=== PATIENT | male | born 1940 | race Caucasian/White ===

== ENCOUNTER 2017-02-25 19:30 | Inpatient (IN) | payer BC, MEDICARE ==
[~2017-02-25] VITALS: Ht 177.8 cm; Wt 59.9 kg
--- NOTE | 2017-02-25 20:00 | NUR ---
PRE - ADMISSION NOTE : The patient is a 76-year-old female who presents to [facility] for evaluation of medically supervised withdrawal from alcohol, opiates on 02/25/2017. His Primary Care Provider is , [place], [place]. Pt. is Full Code per Advanced Directive (at his home at the [facility]), NKA, on Regular Diet. He reports the cause of his drinking habit and opiates use was due to increased negative emotions related to his left right shoulder fracture and pain. He states the cause of his ongoing and frequent use alcohol have been due to difficulty coping with chronic pain, cravings, and treatment of negative withdrawal symptoms. He reports consuming 750 mL of white wine on a daily basis since 2015, last used on the day of present admission. He also takes Hydrocodon 10/325mg BID QD PO last two weeks. His longest sober period was 3 months in the year 2013. He states his alcohol use has negatively impacted his life by impairing close relationships with family and negatively impacting his physical and mental health. The patient reports NO history of withdrawal-induced seizures, NO history of SI/HI, NO history of audio or video hallucinations. At the time of admission, the patient was mild intoxicated without evidence of withdrawal, OL=797/77, HR=65, Arrythmia, RR=16/min, unlabored and even, Temp=98.2, Spo2=95% with room air. Speech is clear and audible. Pt. will be admitted to the unit.
--- NOTE | 2017-02-25 22:00 | NUR ---
ADMISSION NOTE : The patient is a 76-year-old female who presents to [facility] for evaluation of medically supervised withdrawal from alcohol, opiates on 02/25/2017. His Primary Care Provider is , [place], [place]. Pt. is Full Code per Advanced Directive (at his home at the [facility]), NKA, on Regular Diet. He reports the cause of his drinking habit and opiates use was due to increased negative emotions related to his left right shoulder fracture and pain. He states the cause of his ongoing and frequent use alcohol have been due to difficulty coping with chronic pain, cravings, and treatment of negative withdrawal symptoms. He reports consuming 750 mL of white wine on a daily basis since 2015, last used on the day of present admission. He also takes Hydrocodon 10/325 BID QD PO last two weeks. His longest sober period was 3 months in the year 2013. He states his alcohol use has negatively impacted his life by impairing close relationships with family and negatively impacting his physical and mental health. He reports uncertainty about the barriers he will have to overcome to achieve full, long-term sobriety. The patient reports NO history of withdrawal-induced seizures, NO history of SI/HI, NO history of audio or video hallucinations. At the time of admission, the patient was mild intoxicated without evidence of withdrawal, Upon assessment, pt is alert and oriented x4 , the patient reported the following symptoms of withdrawal: anxiety, restlessness, generalized pain, arthralgias, myalgias, difficulty concentrating, anhedonia. PC=381/77, HR=65, Arrythmia, RR=16/min, unlabored and even, Temp=98.2, Spo2=95% with room air. Pt is cooperative. Last BM on 02/24/17. Speech is clear and audible. Skin assessment : multiple small bruises all over the body, fungus bilaterally , photo assessment done, see picture in the chart. . Pt was oriented to room and unit. Pt. was able to provide UDS sample , see results in the PC chart. Safety measures in place : bed on lowest position with side rails x2 up for safety, call light within reach. Will continue to monitor closely and offer help. SUBSTANCE ABUSE HISTORY : White wine 750ml QD PO since 2015, last use on 02/25/2017, pt. uses alcohol since 2010 Hydrocodone 10/325mg QD BID PO last two weeks, last use on 02/25/2017 [place] HISTORY : This is his first Detox. PAST MEDICAL HISTORY : Right shoulder fracture in 11/2016, chronic back pain because of falls. Pt. cant be focused on my questions because of intoxication. FAMILY HISTORY : Parents , the brother diagnosed with Hypothyroidizm, father suffered from Depression. Pt. has two step children.
[2017-02-25 22:11] LABS: *AMPHETAMINE, URINE NEGATIVE (NEGATIVE); *BARBITURATE, URINE NEGATIVE (NEGATIVE); *CANNABINOID, URINE NEGATIVE (NEGATIVE); *COCCAINE, URINE NEGATIVE (NEGATIVE); *OPIATE, URINE POSITIVE (NEGATIVE); *PHENCYCLIDINE SCREEN,URINE NEGATIVE (NEGATIVE)
[2017-02-25 23:40] LABS: BASOPHILS # (AUTO) 0.3 K/uL (0.0-8.0); BASOPHILS % (AUTO) 3.2 % (0.0-2.0); EOSINOPHILS # (AUTO) 0.1 K/uL (0.0-0.7); EOSINOPHILS % (AUTO) 0.6 % (0.0-7.0); HEMATOCRIT 43.5 % (40-50); HEMOGLOBIN 14.6 G/DL (14.0-18.0); LYMPHOCYTES # (AUTO) 0.6 K/UL (0.8-4.8); MEAN CORPUSCULAR HEMOGLOBIN 35.1 UUG (27.0-31.0); MEAN CORPUSCULAR HGB CONC 34 g/dL (32.0-37.0); MEAN CORPUSCULAR VOLUME 104.6 FL (82.0-92.0); MONOCYTES # (AUTO) 0.9 K/UL (0.1-1.30); MONOCYTES % (AUTO) 10.1 % (0.0-11.0); NEUTROPHILS # (AUTO) 6.5 K/UL (1.8-8.9); NEUTROPHILS % (AUTO) 79.1 % (38.5-71.5); PLATELET COUNT (AUTO) 263 K/UL (150-450); RED BLOOD CELL COUNT(AUTO) 4.16 MIL/UL (4.7-6.1); WHITE BLOOD COUNT (AUTO) 8.4 K/UL (4.0-11.2)
[2017-02-25 23:51] LABS: ETHANOL 18 MG/DL (0-0)
[2017-02-25 23:54] LABS: ALANINE AMINOTRANSFERASE 32 U/L (16-63); ALKALINE PHOSPHATASE 155 U/L (50-136); AMYLASE 26 U/L (25-115); ASPARTATE AMINOTRANSFERASE 33 U/L (15-37); BILIRUBIN,TOTAL 0.6 mg/dL (0.2-1.0); CARBON DIOXIDE 31 mmol/L (21-32); CHLORIDE 101 mmol/L (98-107); CREATININE 0.7 mg/dL (0.6-1.3); GLUCOSE 90 mg/dL (74-106); MAGNESIUM 1.9 mg/dL (1.8-2.4); POTASSIUM 3.8 mmol/L (3.5-5.1); TOTAL PROTEIN, SERUM 6.7 g/dL (6.4-8.2); UREA NITROGEN, BLOOD 6 mg/dL (7-18)
[2017-02-26] VITALS: BP 106/77
[2017-02-26] MEDS ORDERED: HYDR-3980 PO (00:25)
[2017-02-26] MEDS ORDERED: FINA5TAB11 PO (00:25)
[2017-02-26] MEDS ORDERED: TAMS0.4C34 PO (00:25)
[2017-02-26 04:00] VITALS: BP 101/60
--- NOTE | 2017-02-26 06:38 | NUR ---
END OF SHIFT : The patient is a 76-year-old female who presents to [facility] for evaluation of medically supervised withdrawal from alcohol, opiates on 02/25/2017. Pt. is Full Code per Advanced Directive (at his home at the [facility]), NKA, on Regular Diet. He reports consuming 750 mL of white wine on a daily basis since 2015, last used on the day of present admission. He also takes Hydrocodon 10/325 BID QD PO last two weeks. His longest sober period was 3 months in the year 2013. The patient reports NO history of withdrawal-induced seizures, NO history of SI/HI, NO history of audio or video hallucinations. Pt remains compliant with the treatment plan. No PRNs were given during my shift. Pt. refused his evening medications, wanted to sleep. V/S remain WNL. RR=16, even and unlabored, lungs clear upon auscultation, abdomen soft and non- distended. Pt denies nausea, vomiting and diarrhea. LAST CIWA=3 ,COWS= 3 at 0400 , INTAKE= 250 ml, voided x3 , slept 6 hours. Safety measures in place : bed on lowest position with side rails x2 up for safety, call light within reach. Will continue to monitor closely and offer help.
--- NOTE | 2017-02-26 07:45 | NUR ---
START OF SHIFT Rcvd endorsement from ongoing nurse, client is in room, he is a/o to name, place, situation. He presents with depressed mood, flat affect, skin moist to touch, flushed face, and fine tremors. He reports chronic low back pain 7/10, no appetite, restless legs, sweats, and fatigue. Left big toe with dry blood around nail, client stated "I must have hurt my big toe, when I was drinking." Dry scab noted on L top auricle, nose bridge, client denies any discomfort. Client is admitted for withdrawal from alcohol. He is on modified 5 day Ativan taper , first dose today @ 0900. Last CIWA 3/COWS 3 @ 0400. Client slept 6 hours. Client reports NKA, full code, regular diet. Client reports denies hx of withdrawal-induced seizure. Client is on seizure and fall precautions. 1:1 sitter for safety monitoring. Side rails x 2 up/padded, bed in lowest/lock position. Call light within reach.
[2017-02-26 08:10] VITALS: BP 102/63
--- NOTE | 2017-02-26 08:19 | NUR ---
PRN Tylenol 650mg PO for chronic low back pain 12/08, Will continue to monitor. Call light within reach.
--- NOTE | 2017-02-26 08:20 | NUR ---
TB test administered ID to L forearm. Vitamin B1 Inj IM administered to L deltoid, client tolerated well.
--- NOTE | 2017-02-26 09:19 | NUR ---
Reassessment PRN Tylenol 650mg effective, client is in bed, sounds asleep, RR 16. Will continue to monitor. Call light within reach.
--- NOTE | 2017-02-26 11:00 | NUR ---
Charge nurse notified of irregular pulse, client is asymptomatic, he denies any chest pain. Will continue to monitor.
[2017-02-26 12:50] VITALS: BP 99/63
--- NOTE | 2017-02-26 14:00 | NUR ---
Dr. Chan ordered EKG for irregular pulse; eval for atrial fibrillation, client is asymptomatic, will continue to monitor.
[2017-02-26 16:55] VITALS: BP 106/61
--- NOTE | 2017-02-26 18:17 | NUR ---
Dr. Chan notified sinus rhythm with blocked premature atrial complexes with occasional premature ventricular complexes. Left axis deviation, Prolonged QT, Abnormal ECG. Client is in bed, a/o x 4, he denies any chest pain. Will continue to monitor.
--- NOTE | 2017-02-26 18:58 | NUR ---
END OF SHIFT Endorsed client to incoming nurse, client is a 76 y/o male, admitted to [facility] for withdrawal from alcohol. He is on modified 5 day Ativan taper, tolerating well. Last CIWA 5 @ 1600. VTE 3, client wearing intermittent Pneumatic CD, tolerating well. PRN Tylenol for chronic low back pain 12/08, noted effective. Dr. Chan notified sinus rhythm with blocked premature atrial complexes with occasional premature ventricular complexes, Left axis deviation, Prolonged QT, Abnormal ECG, NNO at this time. Client is in bed, sound asleep, easy to arouse, RR 16, even, non-labored.. Client continues to present with depressed mood, flat affect, clammy skin, fine tremors. Client was not compliant with group therapy d/t withdrawal symptoms. Adequate PO intake 800mL, void x 2. Client reports NKA, full code, regular diet. Client reports denies hx of withdrawal-induced seizure. Client is on seizure and fall precautions. 1:1 sitter for safety monitoring, d/t unsteady gait. Side rails x 2 up/padded, bed in lowest/lock position. Call light within reach.
--- NOTE | 2017-02-26 19:15 | NUR ---
START OF SHIFT NOTE : Pt. is a 76 y/o male, admitted to [facility] for withdrawal from alcohol. He is on modified 5 day Ativan taper, tolerating well. Client reports NKA, full code, regular diet. Client reports denies hx of withdrawal-induced seizure Last CIWA=10,COWS=5 at 1600. VTE 3, client wearing intermittent Pneumatic CD, tolerating well.. Client is in bed, sound asleep, easy to arouse, RR 16, even, non-labored. Client continues to present with depressed mood, flat affect, clammy skin, fine tremors. Client was not compliant with group therapy d/t withdrawal symptoms. Client is on seizure and fall precautions. 1:1 sitter for safety monitoring, d/t unsteady gait. Safety measures in place : bed on lowest position with side rails x2 up for safety, call light within reach. Will continue to monitor closely and offer help.
[2017-02-26 20:00] VITALS: BP 108/60
[2017-02-27 04:00] VITALS: BP 95/68
--- NOTE | 2017-02-27 06:42 | NUR ---
END OF SHIFT NOTE : Pt. is a 76 y/o male, admitted to [facility] for withdrawal from alcohol. He is on modified 5 day Ativan taper, tolerating well. Client reports NKA, full code, regular diet. Client reports denies hx of withdrawal-induced seizure. VTE 3, client wearing intermittent Pneumatic CD, tolerating well. ATIVAN 2mg NOT given in HS because pt. is sedated and sleeps most of the time. Pt remains compliant with the treatment plan. No PRNs were given during my shift. V/S remain WNL. RR=16, even and unlabored, lungs clear upon auscultation, abdomen soft and non- distended. Pt denies nausea, vomiting and diarrhea. CIWA and COWS taken when pt. is alert for voiding during the night , LAST CIWA=3 ,COWS=3 at 0400 , INTAKE= 200 ml, voided x 1, slept11 hours. Safety measures in place : bed on lowest position with side rails x2 up for safety, call light within reach. Will continue to monitor closely and offer help.
--- NOTE | 2017-02-27 07:20 | NUR ---
Start of Shift Package Sorter received report on 76 year old male admitted on 02/25/17 for ETOH detoxification, as well as monitoring for Opioid withdrawal. Pt states he has NKA, eats a regular diet and is a full code. Reports PMH prostate problems, right shoulder fracture, no history of seizures. Pt currently on an Ativan taper, tolerating well. No PRN administered. Package Sorter encounters pt in his room with staff in room on 1:1 for safety precaution. Pt A/O x4 and makes his needs known. Cooperative, but irritable and quick to anger. Bed in low position with wheels locked and side rails up x2, call light within reach. Will continue to monitor, support and encourage according to plan of care.
[2017-02-27 08:10] VITALS: BP 113/51
--- NOTE | 2017-02-27 09:50 | NUR ---
Endorsement received from SATISH WATSON
--- NOTE | 2017-02-27 09:50 | NUR ---
Pt Endorsement [employer] Worker Helper endorsed care of pt to WALTER Barrientos. Addendum: 02/27/17 at 0953 by SATISH STEWARD RN Endorsement was changed to WALTER Wang
[2017-02-27 10:09] LABS: HEPATITIS B SURFACE AG Negative (Negative)
[2017-02-27 12:00] VITALS: BP 125/74
[2017-02-27 16:00] VITALS: BP 122/70
--- NOTE | 2017-02-27 19:00 | NUR ---
Start of Shift Patient Received. Patient is in bed sleeping. Breathing even and non labored. No signs of pain or discomfort noted. Patient is a 76 year old male admitted on 02/25/17 for ETOH and Opiate Dependence. Patient was placed on a modified Ativan Taper. Patient verbalizes no known allergies, wishes to be full code, following a regular diet, placed on fall precautions. Patient is currently on a 1:1 for safety. Skin is noted with left toe discoloration related to fall prior to admission. Past medical history of right shoulder fracture 11/2016, Chronic Lower back pain related to falls, history of multiple falls. Per endorsement, No PRN medications administered. Last noted COWS 4 and CIWA 4. All needs attended to promptly. Will continue plans of care as ordered.
--- NOTE | 2017-02-27 19:13 | NUR ---
End of Shift Endorsement given to nightshift nurse. PT is a 76 y/o male admitted for alcohol dependence. PT is on a modified taper. Pt did not participate in groups or activities. Pt did not receive any PRN medications. PT is tolerating the taper AEB COWS 4, CIWA 4 at 1600. PT remained in his room and slept most of the day. Pt is 1:1 at this time for safety reasons. Pt did not eat dinner. VS WNL. Full Code. PT is alert and oriented x4. Pt is in STABLE condition at this time. Remains compliant with medication and diet regimen. All needs have been met, All safety measures in place per hospital policy. Bed in lowest position, side rails up x2, call-light within reach. Will continue to monitor
[2017-02-27 20:22] VITALS: BP 91/50
[2017-02-28 00:22] VITALS: BP 90/65
[2017-02-28 04:45] VITALS: BP 95/63
--- NOTE | 2017-02-28 07:01 | NUR ---
End of Shift Patient is in bed sleeping but easily aroused to verbal stimuli. Breathing even and non labored. No signs of pain or discomfort noted. Patient is a 76 year old male admitted on 02/25/17 for ETOH and Opiate Dependence. Patient continues on a modified Ativan taper. No known allergies. Full Code. Regular Diet. Placed on fall precautions. Patient remains on 1:1 for safety. Skin is noted with left toe discoloration related to fall prior to admission. Past medical history of right shoulder fracture 11/2016, Chronic Lower back pain related to falls, history of multiple falls. No PRN medications administered. Last noted COWS 3 and CIWA 4. All needs attended to promptly. Will endorse to continue plans of care as ordered. Addendum: 02/28/17 at 0702 by MALIA CADE LVN Amended: Links added.
--- NOTE | 2017-02-28 07:30 | NUR ---
START OF SHIFT Pt is a 76 yr old male. A&Ox3. Pt was admitted on 02/25/17 for ETOH/Opiate Dependency and is on 4 day Ativan taper as ordered. Medication jhon well. Received report from overnight caregiver nurse. Pt remains on 1:1 for unsteady gait. Pt slept for 5 hrs during the night. Last CIWA score was 4, COWS score was 3 at 1999. Pt is currently in bed resting with respirations even and unlabored. No acute distress noted. Skin is warm and dry to touch. Safety precautions observed. Bed kept in low position and locked with side rails up x2. DVT pumps at end of bed. Call light is within reach. Will continue to monitor.
[2017-02-28 08:00] VITALS: BP 136/65
--- NOTE | 2017-02-28 09:27 | NUR ---
PRN'S GIVEN Pt is c/o lower back pain 09/08. Facial grimacing is observed. Motrin 400mg PO PRN and Robaxin 750mg PO PRN was given as ordered. Medication jhon well. Will continue to monitor.
--- NOTE | 2017-02-28 10:30 | NUR ---
PRN RE-ASSESSMENT Motrin PRN and Robaxin PRN was effective. pain level subsided to 2/10. Encouraged increase fluid intake. Will continue to monitor.
[2017-02-28 12:00] VITALS: BP 102/68
[2017-02-28 16:00] VITALS: BP 101/74
--- NOTE | 2017-02-28 18:52 | NUR ---
END OF SHIFT Pt is a 76 yr old male. A&Ox3. Pt was admitted on 02/25/17 for ETOH/Opiate Dependency and is on 4 day Ativan taper as ordered. Medication jhon well. Pt has been observed with increase fatigue and has been in bed throughout the day. Pt refused to attended group sessions. Pt was encouraged to attend group therapy. Pt was provided with right arm sling for support from s/p right arm fx on 11/2016. Skin is warm and dry to touch. Fine tremors are observed. Pt continues to c/o lower back pain. Lidoderm 5% patch was applied as ordered for pain mgt. Robaxin PRN and Motrin PRN was given in the morning. Medication was effective. Last COWS score was 2, CIWA score was 1 at 1600. Safety precautions observed. Pt remains on 1:1 for unsteady gait. Bed kept in low position and locked with side rails up x2. DVT pumps at end of bed. Call light is within reach.
--- NOTE | 2017-02-28 19:05 | NUR ---
Start of Shift Patient Received. Patient is in bed sleeping but easily aroused to verbal stimuli. Breathing even and non labored. Patient is a 76 year old male admitted on 02/25/17 for ETOH and Opiate Dependence. Patient continues on a modified Ativan taper. No known allergies. Full Code. Regular Diet. Placed on fall precautions. Patient remains on 1:1 for safety. Past medical history of right shoulder fracture 11/2016, Chronic Lower back pain related to falls, history of multiple falls. Per endorsement, patient was given PRN Motrin and Robaxin for increased pain with medications noted to be effective. Patient received sling for right shoulder and is tolerating well. Last noted COWS 2 and CIWA 1. All needs attended to promptly. Will endorse to continue plans of care as ordered.
[2017-02-28 20:03] VITALS: BP 95/58
[2017-03-01 00:32] VITALS: BP 98/69
[2017-03-01 04:55] VITALS: BP 96/71
--- NOTE | 2017-03-01 06:59 | NUR ---
End of Shift Patient is in bed sleeping. Breathing even and non labored. Patient is a 76 year old male admitted on 02/25/17 for ETOH and Opiate Dependence. Patient continues on a modified Ativan taper. No known allergies. Full Code. Regular Diet. Placed on fall precautions. Patient remains on 1:1 for safety. Past medical history of right shoulder fracture 11/2016, Chronic Lower back pain related to falls, history of multiple falls. No PRN medications administered. Last noted COWS 2 and CIWA 2. All needs attended to promptly. Will endorse to continue plans of care as ordered. Addendum: 03/01/17 at 0659 by MALIA CADE LVN Amended: Links added.
--- NOTE | 2017-03-01 07:24 | NUR ---
START OF SHIFT Pt is a 76 yr old male. A&Ox3. Pt was admitted on 02/25/17 for ETOH/Opiate Dependency and is on 4 day Ativan taper as ordered. Medication jhon well. Received report from assistant casino shift manager nurse. Pt remains on 1:1 for unsteady gait. Pt slept for 3 hrs during the night. No PRN's were given. Last CIWA score was 2, COWS score was 2 at 1999. Pt is currently in bed resting with respirations even and unlabored. No acute distress noted. Skin is warm and dry to touch. Fine tremors are observed. Safety precautions observed. Bed kept in low position and locked with side rails up x2. DVT pumps at end of bed. Call light is within reach. Will continue to monitor.
[2017-03-01 08:00] VITALS: BP 101/68
[2017-03-01 12:00] VITALS: BP 98/55
[2017-03-01] MEDS ORDERED: TRAZ-144 PO (15:33)
[2017-03-01] MEDS ORDERED: ACET325T53 PO (15:33)
[2017-03-01] MEDS ORDERED: IBUP-1953 PO (15:33)
[2017-03-01] MEDS ORDERED: DICY20TA28 PO (15:33)
[2017-03-01] MEDS ORDERED: LIDO30AD10 TD (15:33)
[2017-03-01 16:00] VITALS: BP 113/83
--- NOTE | 2017-03-01 18:49 | NUR ---
END OF SHIFT Pt is a 76 yr old male. A&Ox3. Pt was admitted on 02/25/17 for ETOH/Opiate Dependency and has completed 4 day Ativan taper as ordered. Medication jhon well. Pt has been observed with increase fatigue and has been in bed throughout the day. Pt was encouraged to attend group therapy but refused to attended group sessions. Pt is to be discharged tomorrow to [facility] [place]. Pt denies any anxiety or agitation. Skin is warm and dry to touch. Fine tremors are observed. Pt continues to c/o lower back pain 3/10 but states pain level is tolerable. Last COWS score was 3, CIWA score was 1 at 1600. Safety precautions observed. Pt remains on 1:1 for unsteady gait. Bed kept in low position and locked with side rails up x2. DVT pumps at end of bed. Call light is within reach.
--- NOTE | 2017-03-01 19:15 | NUR ---
START OF SHIFT NOTE : The patient is a 76-year-old female who presents to [facility] for evaluation of medically supervised withdrawal from alcohol, opiates on 02/25/2017. Pt. is Full Code per Advanced Directive (at his home at the [facility]), NKA, on Regular Diet. The patient reports NO history of withdrawal-induced seizures, NO history of SI/HI, NO history of audio or video hallucinations. Pt remains compliant with the treatment plan. Pt. will be D/C tomorrow. Safety measures in place : bed on lowest position with side rails x2 up for safety, call light within reach. Will continue to monitor closely and offer help.
[2017-03-01 20:00] VITALS: BP 102/60
[2017-03-02 04:00] VITALS: BP 91/60
--- NOTE | 2017-03-02 06:47 | NUR ---
END OF SHIFT NOTE : The patient is a 76-year-old female who presents to [facility] for evaluation of medically supervised withdrawal from alcohol, opiates on 02/25/2017. Pt. is Full Code per Advanced Directive (at his home at the [facility]), NKA, on Regular Diet. The patient reports NO history of withdrawal-induced seizures, NO history of SI/HI, NO history of audio or video hallucinations. Pt remains compliant with the treatment plan. No PRNs were given during my shift, evening dose of Tamsulosion was not available. V/S remain WNL. RR=16, even and unlabored, lungs clear upon auscultation, abdomen soft and non- distended. Pt denies nausea, vomiting and diarrhea.CIWA and COWS taken when pt. is alert during the night, LAST CIWA=1 ,COWS= 2 at 0400 , [id number] ml, voided x1 , slept 6 hours. Safety measures in place : bed on lowest position with side rails x2 up for safety, call light within reach. Will continue to monitor closely and offer help.
--- NOTE | 2017-03-02 07:30 | NUR ---
START OF SHIFT Pt is a 76 yr old male. A&Ox3. Pt was admitted on 02/25/17 for ETOH/Opiate Dependency and has completed 4 day Ativan taper as ordered. Medication jhon well. Received report from cook night nurse. Pt remains on 1:1 for unsteady gait. Pt slept for 6 hrs during the night. No PRN's were given. Last CIWA score was 1, COWS score was 2 at 0400. Pt is to be discharged today to [place]. No acute distress noted. Skin is warm and dry to touch. Fine tremors are observed. Safety precautions observed. Bed kept in low position and locked with side rails up x2. DVT pumps at end of bed. Call light is within reach. Will continue to monitor.
[2017-03-02 08:00] VITALS: BP 107/74
[2017-03-02 12:00] VITALS: BP 113/70
--- NOTE | 2017-03-02 14:45 | NUR ---
TRANSFER OF CARE TO AURELIA WATSON 76-year-old male, admitted for medically supervised withdrawal from alcohol, opiates on 02/25/2017. Full code per Advanced Directive (at his home at the [facility]), NKA, on Regular Diet. No history of withdrawal-induced seizuresment. On admission noted to multiple small bruises all over the body, fungus of toenail , photo assessment done, see picture in the chart. New photo of toenail bed done yesterday. History of falls, right shoulder fracture 11/2016, chronic low back pain due to falls per Pt report. Received report from tressa Lima. Pt to be discharged once SNF facility selected by family. Pending discharge today. Pt currently on 1:1 due to fall history. Pt currently not in room as he is on patio with PCT. Will continue to monitor.
--- NOTE | 2017-03-02 14:49 | NUR ---
ENDORSEMENT GIVEN Endorsed pt given to RN nurse to continue with care. Discharge is currently pending due to change in location. Pt is in stable condition. Pt remains on 1:1 for unsteady gait.
[2017-03-02 16:00] VITALS: BP 108/63
--- NOTE | 2017-03-02 17:29 | NUR ---
PRN MEDICATION ADMINISTRATION Low back pain 5/10 per Pt report. Given Motrin and Robaxin PRN.
--- NOTE | 2017-03-02 18:29 | NUR ---
PRN MEDICATION REASSESSMENT After Motrin and Robaxin, Pt reports low back pain 1-07/11.
--- NOTE | 2017-03-02 18:50 | NUR ---
DISCHARGE NOTE 76-year-old male, admitted for medically supervised withdrawal from alcohol, opiates on 02/25/2017. Full code per Advanced Directive (at his home at the [facility]), NKA, on Regular Diet. No history of withdrawal-induced seizuresment. On admission noted to multiple small bruises all over the body, fungus of toenail , photo assessment done, see picture in the chart. New photo of toenail bed done yesterday. History of falls, right shoulder fracture 11/2016, chronic low back pain due to falls per Pt report. Upon discharge, Pt in stable condition, vitals WNL, skin intact, denies suicidal or homicidal ideations, all discharge paperwork signed and dated. Pt was discharged from [facility] on 03/02/17 at 1850. At 1850 Pt left building with all medications, belongings and prescription. Pt to go to [facility]. Transportation per [employer].
== END 2017-03-02 19:03 | DRG 895 ==
LOC: SRC 20:09
PROVIDERS: ADMIT Internal Medicine; ATTEND Internal Medicine
PROC: HZ2ZZZZ Detoxification Services for Substance Abuse Treatment (ICD-10-PCS; principal; 2017-02-25)
PROC: HZ51ZZZ Individual Psychotherapy for Substance Abuse Treatment, Behavioral (ICD-10-PCS; 2017-02-28)
DX: F10.230 Alcohol dependence with withdrawal, uncomplicated (principal); K70.10 Alcoholic hepatitis without ascites; F11.10 Opioid abuse, uncomplicated; W19.XXXD Unspecified fall, subsequent encounter; Y90.9 Presence of alcohol in blood, level not specified; F17.210 Nicotine dependence, cigarettes, uncomplicated; N40.0 Benign prostatic hyperplasia without lower urinary tract symptoms; Z82.49 Family history of ischemic heart disease and other diseases of the circulatory system; Z81.8 Family history of other mental and behavioral disorders; S42.91XD Fracture of right shoulder girdle, part unspecified, subsequent encounter for fracture with routine healing; G89.29 Other chronic pain; M54.5 Low back pain; Z91.81 History of falling
CPT/HCPCS: 36415; 80307; 80361; 83735; 85025; 86580; 86592; 86705; 86803; 87340; 87806; 93005; 97116; 97165; G0480; J3411